=== PATIENT | female | born 1985 | race Two or more races ===

== ENCOUNTER 2019-03-12 09:06 | Outpatient (CLI) | payer OTHER ==
[~2019-03-12] VITALS: Ht 167.6 cm; Wt 70.8 kg
[~2019-03-12 09:06] MED LIST: COLACE100 MG ORAL; NKM; NORCO 5-325 TA1 EACH ORAL; TRAMADOL HCL50 MG ORAL
[2019-03-12] MEDS ORDERED: OMEPRAZOLE40 M1 ORAL (13:09)
--- NOTE | 2019-03-12 20:15 | Consultation ---
DATE OF CONSULTATION: 03/12/2019 GASTROENTEROLOGY CONSULTATION: CONSULTING PHYSICIAN: Jose Tadeo M.D. CHIEF COMPLAINT: Abdominal pain. HISTORY OF PRESENT ILLNESS: This is a very pleasant 33-year-old female, complained of chronic GERD. She is on omeprazole and Zantac. She also has history of cholecystectomy many years ago. The pain is mostly in the epigastric and sternum area, comes and goes, not related to meals. Not waking up in the middle of night. Not associated with nausea and vomiting. No change in bowel habits. No obvious GI bleeding. No prior history of endoscopy. PAST MEDICAL HISTORY: 1. Gallstone. 2. GERD. PAST SURGICAL HISTORY: Cholecystectomy. MEDICATION: Omeprazole. FAMILY HISTORY: Father had osteoarthritis and diabetes. SOCIAL HISTORY: The patient drinks socially. Denies any tobacco or IV drug abuse. ALLERGIES: No known allergies. PHYSICAL EXAMINATION: VITAL SIGNS: Temperature 98, blood pressure is 114/71, pulse is 84, respirations 20. HEENT: Normocephalic and atraumatic. Sclerae anicteric. NECK: Supple. No evidence of obvious lymphadenopathy. CARDIOVASCULAR: Regular rate and rhythm. Plus S1 and S2. No obvious murmur. LUNGS: Clear to auscultation bilaterally. ABDOMEN: Positive bowel sounds. Soft. Minimal tenderness to palpation in the epigastric area and on the xiphoid area, tender to palpation. No rebound. No guarding. No peritoneal sign. EXTREMITIES: No cyanosis, no clubbing, no edema. ASSESSMENT AND PLAN: This is a 33-year-old female with signs and symptoms highly suspicious for costochondritis versus GERD. Given that the patient has been on PPI for so many years without any relief, we will recommend the patient to have endoscopy done for that. Also, we sent some labs today for evaluation of fatigue, for evaluation of inflammation including ESR, C-reactive protein, GABY, double-strand DNA to evaluate for possible arthritis. The patient was instructed to take ibuprofen 600 mg every 8 hours p.r.n. for pain. So, our major plan will be to endoscopy. If that is negative, the patient to be referred to a social service technician for evaluation of arthritis. I want to thank Dr. Reed for this kind referral. Jose Patricia Tadeo DR: BOUBACAR JOB#: [id number] CC: Rivas Reed M.D.; Fax#: [phone]
== END 2019-03-12 13:43 | disposition home or self-care (01) ==
LOC: PAN 09:06
DX: K21.9 Gastro-esophageal reflux disease without esophagitis (principal); Z90.49 Acquired absence of other specified parts of digestive tract; R10.13 Epigastric pain; Z83.3 Family history of diabetes mellitus; Z82.61 Family history of arthritis
CPT/HCPCS: 99202

== ENCOUNTER 2020-02-10 18:03 | Emergency (ER) | payer MEDICAID, OTHER ==
[~2020-02-10] VITALS: Ht 162.6 cm; Wt 72.6 kg
[~2020-02-10 18:03] MED LIST changes: +OMEPRAZOLE40 M1 ORAL
[2020-02-10 18:05] VITALS: BP 114/71
--- NOTE | 2020-02-10 19:01 | Emergency Room Report ---
History of Present Illness General Chief Complaint: Flu Like Symptoms Source: Patient Present Illness HPI 34-year-old female with no significant past medical history here complaining of 2 days of cough and congestion appears to be afebrile. Patient works at [employer] and was exposed to a confirmed case of coronavirus. Denies chest pain, shortness of breath, headache and dizziness. Denies . Denies any recent travel. Has not taken medication for symptom relief. Reports that has Tylenol and Motrin at home however is requesting cough syrup. COVID-19 risk:Travel to affect: No Has patient experienced baez: No Allergies: Coded Allergies: No Known Allergies (Unverified , 12/14/13) Patient History Past Medical History: see triage record Past Surgical History: none Pertinent Family History: none Last Menstrual Period: 01/23/2020 Now: No Immunizations: UTD Reviewed Nursing Documentation: PMH: Agreed; PSxH: Agreed Nursing Documentation-PMH Past Medical History: No Stated History Hx Cardiac Problems: No Hx Cancer: No Hx Gastrointestinal Problems: Yes Hx Neurological Problems: No Review of Systems All Other Systems: negative except mentioned in HPI Physical Exam Vital Signs Date Time Temp Pulse Resp B/P (MAP) Pulse Ox O2 Delivery O2 Flow Rate FiO2 02/10/20 17:56 99.0 97 20 114/71 (85) 98 Room Air Sp02 EP Interpretation: reviewed, normal General Appearance: no apparent distress, alert, GCS 15, non-toxic Head: normocephalic, atraumatic Eyes: bilateral eye normal inspection, bilateral eye PERRL ENT: hearing grossly normal, normal pharynx, no angioedema, normal voice Neck: full range of motion, supple, thyroid normal, no meningismus, no bony tend, supple/symm/no masses Respiratory: chest non-tender, lungs clear, normal breath sounds, no rhonchi, no respiratory distress, no retraction, no wheezing, speaking full sentences Cardiovascular #1: regular rate, rhythm, no edema, no murmur Gastrointestinal: non tender, soft Rectal: deferred Genitourinary: no CVA tenderness Musculoskeletal: back normal Neurologic: alert, motor strength/tone normal, oriented x3, sensory intact, responsive, speech normal Psychiatric: judgement/insight normal, memory normal, mood/affect normal, no suicidal/homicidal ideation Skin: no rash Lymphatic: no adenopathy Medical Decision Making PA Attestation All my diagnosis and treatment plans were reviewed ad discussed with my supervising physician Dr. Hagen Diagnostic Impression: Primary Impression: Exposure to SARS-associated coronavirus ER Course 34-year-old female with no significant past medical history here complaining of 2 days of cough and congestion appears to be afebrile. Patient works at [employer] office and was exposed to a confirmed case of coronavirus. Denies chest pain, shortness of breath, headache and dizziness. Denies . Denies any recent travel. Has not taken medication for symptom relief. Reports that has Tylenol and Motrin at home however is requesting cough syrup. Ddx considered but are not limited to: Coronavirus, strep pharyngitis, URI, tonsillitis, peritonsillar abscess, influneza Vital signs: are WNL, pt. is afebrile H&PE are most consistent with: Exposure to baez virus ORDERS: Covid 19 test, rapid influenza test, guaifenesin ED INTERVENTIONS: None required at this time. DISCHARGE: At this time pt. is stable for d/c to home. Will provide printed patient care instructions, and any necessary prescriptions. Care plan and follow up instructions have been discussed with the patient prior to discharge. take medication as directed, follow-up with your primary doctor, you need to stay home for self quarantine due to Covid 19 precautions for 14 days Last Vital Signs Date Time Temp Pulse Resp B/P (MAP) Pulse Ox O2 Delivery O2 Flow Rate FiO2 02/10/20 17:56 99.0 97 20 114/71 (85) 98 Room Air Disposition: HOME, SELF-CARE Condition: Stable Scripts Guaifenesin* (GUAIFENESIN*) 100 Mg/5 Ml Liquid 15 ML ORAL Q8H, #120 ML 0 Refills Prov: Mamie Grigsby 02/10/20 Patient Instructions: Upper Respiratory Infection, Adult, [id number] Additional Instructions: Take medication as directed, stay home and Claritin also for the next 15 days, avoid big community of people, follow-up with your primary care provider, increase oral hydration Mamie Grigsby Feb 10, 2020 19:01
[2020-02-10] MEDS ORDERED: GUAIFENESI100 MG/5 M ORAL (19:03)
[2020-02-10 19:40] VITALS: BP 114/71
== END 2020-02-10 19:40 | disposition home or self-care (01) ==
LOC: EDBD 18:03 → EMR 18:30
DX: R05 Cough (principal); Z20.828 Contact with and (suspected) exposure to other viral communicable diseases
CPT/HCPCS: 86710; 87635; Z7502; 99282

== ENCOUNTER 2020-03-16 08:43 | Emergency (ER) | payer OTHER ==
[~2020-03-16] VITALS: Ht 162.6 cm; Wt 72.6 kg
[~2020-03-16 08:43] MED LIST changes: +GUAIFENESI100 MG/5 M ORAL
[2020-03-16 08:45] VITALS: BP 116/82
--- NOTE | 2020-03-16 08:50 | Emergency Room Report ---
History of Present Illness General Chief Complaint: Flu Like Symptoms Source: Patient Present Illness HPI This patient presents during the COVID-19 pandemic. The patient states that about 8 days ago her initial symptoms were fatigue and diarrhea. She states that is since resolved. The patient states for the past 5 days she has had a dry cough, shortness of breath and low-grade fever. She denies chest pain. She denies headache or neck pain. She denies blurry vision. She denies abdominal pain. He states that she works at [employer] across the street. There have been several COVID-19 positive patients that have been seen there. She states she did get seen previously and was negative for COVID-19 a few weeks ago. She has no other complaints. Allergies: Coded Allergies: No Known Allergies (Unverified , 12/14/13) COVID-19 Screening Contact w/high risk pt: No Recent Travel to affected area: No Experienced COVID-19 symptoms?: Yes COVID-19 symptoms experienced: Cough, Flu-Like Symptoms Patient History Past Medical History: none, see triage record Social History: Denies: smoking, alcohol use, drug use Last Menstrual Period: 02/20/20 Now: No Reviewed Nursing Documentation: PMH: Agreed; PSxH: Agreed Nursing Documentation-PMH Past Medical History: No Stated History Hx Cardiac Problems: No Hx Cancer: No Hx Gastrointestinal Problems: Yes Hx Neurological Problems: No Review of Systems All Other Systems: negative except mentioned in HPI Physical Exam Vital Signs Date Time Temp Pulse Resp B/P (MAP) Pulse Ox O2 Delivery O2 Flow Rate FiO2 03/16/20 08:36 99.1 99 20 116/82 (93) 96 Room Air Sp02 EP Interpretation: reviewed, normal General Appearance: no apparent distress, alert, GCS 15, non-toxic Head: normocephalic, atraumatic Eyes: bilateral eye normal inspection ENT: hearing grossly normal, no angioedema, normal voice Neck: normal inspection, full range of motion Respiratory: lungs clear, normal breath sounds, no respiratory distress, no retraction, no accessory muscle use, speaking full sentences Cardiovascular #1: regular rate, rhythm, no edema Rectal: deferred Musculoskeletal: normal inspection, normal range of motion, gait/station normal , non-tender Neurologic: alert, motor strength/tone normal, oriented x3, sensory intact, responsive, speech normal Psychiatric: judgement/insight normal, memory normal, mood/affect normal, no suicidal/homicidal ideation Skin: normal color Medical Decision Making Diagnostic Impression: Primary Impression: Suspected 2019 novel coronavirus infection ER Course This patient presents during the global COVID-19 pandemic. 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 She also has a classic presentation. Overall, her evaluation is reassuring. The patient's room air pulse ox is 96%. She is well-appearing overall without respiratory distress on physical exam. Chest x-ray shows bilateral lower lung field mild patchy opacities consistent with COVID-19. There is also some increased opacification on the left lingula. Given this more pronounced opacification on the left the patient could also have an community-acquired bacterial pneumonia. Therefore, I will also go ahead and treat this patient with azithromycin. The patient was educated on proning. She also has the health sid on her iPhone which will provide her home pulse oximetry monitoring. Patient was educated on return precautions. The patient is placed in quarantine status for at least 14 days. He was educated that she should not come into contact with any one in the public to prevent spread of COVID-19. She is given close return precautions and follow-up instructions. This patient was evaluated in the context of the global COVID-19 pandemic, which necessitated consideration that the patient might be at risk for infection with the [id number] virus that causes COVID-19. Institutional protocols and algorithms that pertain to the evaluation of patients at risk for COVID-19 and the state of rapid change based on information released by multiple regulatory bodies including the CDC and federal and state organizations. These policies and algorithms were followed during the patient' s care in the ED. COVID-19 pending. Chest X-Ray Diagnostic Results Chest X-Ray Diagnostic Results : Chest X-Ray Ordered: Yes # of Views/Limited/Complete: 1 View Indication: Shortness of Breath EP Interpretation: Yes Interpretation: other - L. Lingula opacity. Bilateral patchy opacitiesk lower lung mix. Last Vital Signs Date Time Temp Pulse Resp B/P (MAP) Pulse Ox O2 Delivery O2 Flow Rate FiO2 03/16/20 08:45 99 20 Room Air 03/16/20 08:36 99.1 116/82 (93) 96 Disposition: HOME, SELF-CARE Condition: Stable Colianno,Lulú M. DO Mar 16, 2020 08:50
[2020-03-16] MEDS ORDERED: ZITHROMAX250 MG ORAL (09:37)
[2020-03-16 09:50] VITALS: BP 116/82
[2020-03-16] MEDS ORDERED: ALBUTEROL SULF8.5 G1 INH (09:56)
--- NOTE | 2020-03-16 10:11 | Diagnostic Imaging Report ---
Indication: Reason For Exam: SOB Technique: One view of the chest Comparison: none Findings: Exam is somewhat limited as metal from patient's problem may obscure pathology lung bases; per technologist, patient unable to remove. The lungs pleural spaces are grossly clear. The heart size is normal. Impression: No acute process
== END 2020-03-16 09:50 | disposition home or self-care (01) ==
LOC: EMR 09:05
DX: R05 Cough (principal); R19.7 Diarrhea, unspecified; R53.83 Other fatigue; R06.02 Shortness of breath; R50.9 Fever, unspecified
CPT/HCPCS: 71045; 87635; Z7502; 99283

== ENCOUNTER 2020-08-25 13:04 | Emergency (ER) | payer OTHER ==
[~2020-08-25] VITALS: Ht 162.6 cm; Wt 73.5 kg
[~2020-08-25 13:04] MED LIST changes: +ALBUTEROL SULF8.5 G1 INH; +ZITHROMAX250 MG ORAL
--- NOTE | 2020-08-25 13:25 | NUR ---
ED Nurse Note: Patient ambulated to ED c/o SOB and headaches x 1 week. AAO x4, VSS at this time.
--- NOTE | 2020-08-25 13:39 | Emergency Room Report ---
History of Present Illness General Chief Complaint: General Complaint Source: Patient Present Illness HPI Patient had COVID in February. She reports being ill for a month and a half. She felt she recovered. She did not have to be hospitalized. She did not monitor her oxygen saturations during that time. Over the last week she is developed SOB and headaches. It feels similar to when she had COVID-19. She hears some sounds in her chest occasionally. She feels weaknesses with exertion. When she had COVID-19 she was prescribed pro-air and Ventolin. These helped at that time. She has not used them recently. She denies fevers or chills. The headache is generalized and does not radiate. She denies any meningismus or neck pain. Headache is rated 5/10. She has not taken any medications recently. Dad tested + for COVID yesterday. He also had COVID-19 in February. He was ill but recovered. Because he tested positive she is concerned that she might have recurrence of COVID-19. 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 No sore throat, chest pain, palpitations, nausea, vomiting, diarrhea, dysuria, abdominal pain, joint pain, rashes, depression, anxiety, visual changes, dizziness. 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 Last Menstrual Period: 08/23/2020 Reviewed Nursing Documentation: PMH: Agreed; PSxH: Agreed Nursing Documentation-PMH Past Medical History: No Stated History Hx Cardiac Problems: No Hx Cancer: No Hx Gastrointestinal Problems: Yes Hx Neurological Problems: No Review of Systems All Other Systems: negative except mentioned in HPI Physical Exam Vital Signs Date Time Temp Pulse Resp B/P (MAP) Pulse Ox O2 Delivery O2 Flow Rate FiO2 08/25/20 13:10 97.9 83 16 118/78 (91) 100 Room Air Sp02 EP Interpretation: reviewed, normal General Appearance: well appearing, no apparent distress, GCS 15 Head: normocephalic Eyes: bilateral eye normal inspection, bilateral eye PERRL, bilateral eye EOMI ENT: normal pharynx, moist mucus membranes Neck: supple Respiratory: no respiratory distress, crackles - Faint right lower lobe Cardiovascular #1: regular rate, rhythm, no edema Cardiovascular #2: 2+ radial (R) Gastrointestinal: normal inspection, non-distended Musculoskeletal: back normal, normal range of motion, no calf tenderness, gait/station normal Neurologic: alert, oriented x3, grossly normal Psychiatric: mood/affect normal Skin: no rash, warm/dry Medical Decision Making Diagnostic Impression: Primary Impression: Dyspnea Qualified Codes: R06.00 - Dyspnea, unspecified Additional Impressions: post-covid dyspnea Headache Qualified Codes: R51 - Headache ER Course Patient presents with dyspnea and headache post COVID-19 in February. Differential includes pneumonia, bronchospasm, post COVID-19 recovery, other viral etiology, pulmonary embolus amongst others. The fact that her father tested positive yesterday for COVID-19 suggest that he continues to have viral particles because of his immune suppression. The likelihood of COVID-19 reinfection is extremely unlikely. Based on history, vital signs and physical exam pulmonary embolus extremely unlikely. She also denies fevers at this time. There is not a productive cough. Initial considerations for laboratory evaluation not undertaken as clinically she is stable. However chest x-ray is indicated as well as cardiac monitoring. In addition the patient will be given a dose of Tylenol. There are no wheezes however consideration for bronchodilator undertaken. Repeat evaluation indicated. Chest x-ray no infiltrates. Patient improved with Tylenol. After exercise in emergency department pulse oximetry remained at 100%. Discussed findings with patient and suspected etiology of dyspnea and headache. Advised patient that according to CDC guidelines she is able to return to work. Discussed the importance of outpatient physician follow-up. No aspirin, advil, aleve, alkaselzer, peptobismol or alcohol. Tylenol and [place]. Follow up with your private physician. You should see a supervisor inspection department. You need to have testing for H. pylori. Apparent emergency at this time. Patient stable for outpatient observation and treatment. Chest X-Ray Diagnostic Results Chest X-Ray Diagnostic Results : Chest X-Ray Ordered: Yes # of Views/Limited/Complete: 1 View Indication: Shortness of Breath EP Interpretation: Yes Interpretation: no consolidation, no effusion, no pneumothorax Impression: No acute disease Last Vital Signs Date Time Temp Pulse Resp B/P (MAP) Pulse Ox O2 Delivery O2 Flow Rate FiO2 08/25/20 15:13 97.9 16 118/78 100 Room Air 08/25/20 13:41 83 Status: improved Disposition: HOME, SELF-CARE Condition: Improved Will Aguirre MD Aug 25, 2020 13:39
[2020-08-25 13:41] VITALS: BP 118/78
[2020-08-25 15:13] VITALS: BP 118/78
--- NOTE | 2020-08-25 15:13 | NUR ---
ER DISCHARGE NOTE: Patient is cleared to be discharged per ERMD, pt is aox4, on room air, with stable vital signs. pt was given dc and prescription instructions, pt was able to verbalize understanding, pt id band removed without complications. pt is able to ambulate with steady gait. pt took all belongings.
--- NOTE | 2020-08-25 15:40 | Diagnostic Imaging Report ---
Indication: Reason For Exam: DYSPNEA Technique: 2 views: PA and lateral view of the chest. Comparison: None. Findings: The cardiomediastinal silhouette is unchanged in appearance. Mild increased density of the lung bases is likely secondary to soft tissue shadowing. There is mild diffuse bronchial thickening. No new airspace consolidation. No pneumothorax or pleural effusion. No acute osseous abnormality. Status post cholecystectomy. IMPRESSION: Mild diffuse peribronchial thickening in the absence of airspace consolidation, which is nonspecific but can be associated with infectious/inflammatory airways disease in the appropriate clinical context.
== END 2020-08-25 16:22 | disposition home or self-care (01) ==
LOC: EMR 13:40
DX: R06.00 Dyspnea, unspecified (principal); R51 Headache; Z86.19 Personal history of other infectious and parasitic diseases
CPT/HCPCS: 71046; Z7502; 99283